=== PATIENT | female | born 1965 | race Caucasian/White ===

== ENCOUNTER → 2018-10-26 13:29 | Outpatient (CLI) | payer BC, SELFPAY ==
[2018-10-26 13:51] LABS: Basophils # 0.1 K/mm3 (0-0.2); Basophils % 0.7 % (0.1-2.0); Eosinophils # 0.2 K/mm3 (0.0-0.4); Eosinophils % 2.9 % (0.1-12.0); Hematocrit 39.3 % (37.0-47.0); Hemoglobin 12.8 g/dL (12.2-16.2); Lymphocytes # 1.6 K/mm3 (0.7-4.5); Mean Corpuscular HGB Conc 32.5 g/dL (31.8-35.4); Mean Corpuscular Hemoglobin 30.3 pg (27.0-31.2); Mean Corpuscular Volume 93.1 fl (81-99); Mean Platelet Volume 6.7 fl (7.4-10.4); Monocytes # 0.3 K/mm3 (0.1-1.0); Monocytes % 4.7 % (1.7-9.3); Neutrophils # 4.4 K/mm3 (1.8-7.8); Neutrophils % 67.7 % (37.0-80.0); Platelet Count 253 K/mm3 (142-424); Red Blood Count 4.22 M/mm3 (4.20-5.40); Red Cell Distribution Width 13.2 % (11.5-17.5); White Blood Count 6.5 K/mm3 (4.8-10.8)
[2018-10-26 19:16] LABS: Alanine Aminotransferase 33 U/L (12-78); Albumin/Globulin Ratio 1.2 (1.1-1.8); Alkaline Phosphatase 60 U/L (46-116); Anion Gap 16.1 mEq/L (5-15); Aspartate Amino Transferase 17 U/L (15-37); Bilirubin,Total 0.4 mg/dL (0.2-1.0); Blood Urea Nitrogen 15 mg/dL (7-18); Calcium 9.1 mg/dL (8.5-10.1); Carbon Dioxide 26 mmol/L (21.0-32.0); Chloride 104 mmol/L (98-107); Creatinine,Serum 0.83 mg/dL (0.55-1.02); Estimated Glomerular Filt Rate 72 ml/min (>60); GFR (African American) 87 ML/MIN (>60); Globulin 3.4 gm/dl (1.3-3.2); Glucose 114 mg/dL (74-106); Potassium 4.1 mmoL/L (3.5-5.1); Sodium 142 mmol/L (136-145); Total Protein,Serum 7.4 gm/dL (6.4-8.2)
== END ==
PROVIDERS: Visit Provider Otolaryngology
DX: Z01.810 Encounter for preprocedural cardiovascular examination (principal); Z01.812 Encounter for preprocedural laboratory examination
CPT/HCPCS: 36415; 80053; 85025; 93005

== ENCOUNTER → 2018-12-06 13:43 | Outpatient (CLI) | payer BC, SELFPAY ==
[2018-12-06 14:25] LABS: Calcium 7.7 mg/dL (8.5-10.1); Free T4 (Free Thyroxine) 1.39 ng/dl (0.76-1.46); Thyroid Stimulating Hormone 0.12 uIU/ml (0.358-3.740)
== END ==
PROVIDERS: Visit Provider Otolaryngology
DX: C73 Malignant neoplasm of thyroid gland (principal); C80.1 Malignant (primary) neoplasm, unspecified
CPT/HCPCS: 36415; 82310; 84439; 84443

== ENCOUNTER → 2019-01-14 09:58 | Outpatient (CLI) | payer BC, SELFPAY ==
[2019-01-14 10:41] LABS: Calcium 7.8 mg/dL (8.5-10.1); Free T4 (Free Thyroxine) 1.32 ng/dl (0.76-1.46); Thyroid Stimulating Hormone 0.14 uIU/ml (0.358-3.740)
== END ==
PROVIDERS: Visit Provider Otolaryngology
DX: C73 Malignant neoplasm of thyroid gland (principal); E03.9 Hypothyroidism, unspecified; E83.51 Hypocalcemia
CPT/HCPCS: 36415; 82310; 84439; 84443

== ENCOUNTER → 2019-02-14 14:59 | Outpatient (CLI) | payer BC, SELFPAY ==
[2019-02-14 15:15] LABS: Calcium 8.7 mg/dL (8.5-10.1)
== END ==
PROVIDERS: Visit Provider Otolaryngology
DX: E83.51 Hypocalcemia (principal)
CPT/HCPCS: 36415; 82310

== ENCOUNTER → 2019-07-14 15:50 | Outpatient (CLI) | payer OTHER, SELFPAY ==
--- NOTE | 2019-07-14 15:56 | MM_ITS ---
PROCEDURE: MM DIG SCREENING MAMM BI W/CAD CLINICAL INDICATION: screening There is no personal or family history of breast cancer. There has been previous bilateral breast reduction surgery. COMPARISON: DIGMAMMDX MAMMOGRAM DX-FINANCIAL INTERN N/C from 02/06/2010 DMSB DIGITAL MAMM-SCREEN BILATERAL from 09/17/2011 DMDXUWAL DIG MAMM-DX UNIL LT W/ADD VIEW from 03/12/2012 TECHNIQUE: Standard CC and MLO images were obtained. R2 CAD reviewed. FINDINGS: Scattered fibroglandular densities are seen throughout both breast on a background of primarily fatty type breast parenchyma. There are couple benign-appearing microcalcifications in each breast. There is no significant postsurgical scarring in either breast. There is no suspicious lesion and no suspicious microcalcifications. IMPRESSION: Fibrofatty parenchyma with no suspicious lesions seen BI-RAD Category: 2 Benign Finding(s) FOLLOW-UP: 1YR 1 Year Follow-up (A letter has been sent to the patient regarding results of the study.) Dictated by: Dr. Deon Bean MD 07/19/2019 12:[address] Deon Bean MD in [place] 07/19/2019 12:02
== END ==
PROVIDERS: PCP Physician Assistant; Visit Provider Nurse Practitioner Family
DX: Z12.31 Encounter for screening mammogram for malignant neoplasm of breast (principal)
CPT/HCPCS: 77067

== ENCOUNTER → 2019-12-01 10:35 | Outpatient (CLI) | payer BC, SELFPAY ==
[2019-12-01 11:08] LABS: Calcium 8.4 mg/dl (8.4-10.2)
[2019-12-01 11:30] LABS: Free T4 (Free Thyroxine) 1.67 ng/dl (0.78-2.19)
[2019-12-01 11:39] LABS: Thyroid Stimulating Hormone < 0.02 uIU/mL (0.465-4.68)
== END ==
PROVIDERS: Visit Provider Otolaryngology
DX: E03.9 Hypothyroidism, unspecified (principal)
CPT/HCPCS: 36415; 82310; 84439; 84443

== ENCOUNTER → 2020-12-03 12:41 | Outpatient (CLI) | payer OTHER, SELFPAY ==
[2020-12-03 13:48] LABS: Free T4 (Free Thyroxine) 1.41 ng/dl (0.78-2.19)
[2020-12-03 14:02] LABS: Thyroid Stimulating Hormone 0.23 uIU/mL (0.465-4.68)
== END ==
PROVIDERS: Visit Provider Otolaryngology
DX: E03.9 Hypothyroidism, unspecified (principal)
CPT/HCPCS: 36415; 84439; 84443

== ENCOUNTER → 2021-12-10 12:49 | Outpatient (CLI) | payer OTHER, SELFPAY ==
--- NOTE | 2021-12-10 12:54 | MM_ITS ---
PROCEDURE INFORMATION: Exam: MG Bilateral Screening 3D Mammography Exam date and time: 12/10/2021 12:58 PM Age: 56 years old Clinical indication: Screening examination. No family history of breast cancer. TECHNIQUE: Imaging protocol: Bilateral Screening tomosynthesis and 2D mammography including computer-aided detection (CAD) when performed. COMPARISON: 1. MG MM DIG SCREENING MAMM BI W/CAD 07/14/2019 4:06 PM 2. MG DMDXUWAL DIG MAMM-DX UNIL LT W/ADD VIEW 03/12/2012 3:06 PM 3. MG DMSB DIGITAL MAMM-SCREEN BILATERAL 09/17/2011 10:37 AM 4. MG DIGMAMMDX MAMMOGRAM DX-LEAD RELAY TESTER N/C 02/06/2010 11:02 AM FINDINGS: MAMMOGRAPHY: Breast composition: The breasts are almost entirely fatty. Mass: No suspicious mass. Architectural distortion: Mild diffuse architectural distortion with history of reduction mammoplasty. No suspicious architectural distortion. Calcifications: No suspicious calcifications. Asymmetric density: None. Skin thickening: None. Axillary adenopathy: None. IMPRESSION: No mammographic evidence of malignancy. Annual screening is recommended unless otherwise clinically indicated. ASSESSMENT: BI-RADS Category 2: Benign
== END ==
PROVIDERS: PCP Nurse Practitioner Family; Visit Provider Nurse Practitioner Family
DX: Z12.31 Encounter for screening mammogram for malignant neoplasm of breast (principal)
CPT/HCPCS: 77063; 77067

== ENCOUNTER → 2022-08-18 13:17 | Outpatient (CLI) | payer OTHER, SELFPAY ==
--- NOTE | 2022-08-18 13:21 | XR_ITS ---
FINAL REPORT CLINICAL HISTORY: foot pain FINDINGS: LEFT FOOT Three views of the left foot demonstrate no acute fracture or dislocation. The visualized joint spaces are normally aligned. The soft tissues are unremarkable. IMPRESSION: No acute bony abnormality. Reviewed, Interpreted and Dictated by Manjinder Bell III, MD Transcribed by Sharla Ware Authenticated and [facility] [place]
--- NOTE | 2022-08-18 13:21 | XR_ITS ---
FINAL REPORT CLINICAL HISTORY: foot pain FINDINGS: RIGHT FOOT 3 views of the right foot were obtained. There is no acute fracture or dislocation. Visualized joint spaces are normally aligned. Soft tissues are unremarkable. IMPRESSION: No acute bony abnormality. Reviewed, Interpreted and Dictated by Manjinder Bell III, MD Transcribed by Sharla Ware Authenticated and [facility]
== END ==
PROVIDERS: PCP Family Medicine; Visit Provider Podiatrist
DX: M79.671 Pain in right foot (principal); M79.672 Pain in left foot; M21.611 Bunion of right foot
CPT/HCPCS: 73630

== ENCOUNTER 2023-09-29 19:37 | Outpatient (CLI) | payer MEDICAID, SELFPAY ==
[2023-09-29 20:22] LABS: Basophils # 0.1 K/mm3 (0-0.2); Basophils % 1.1 % (0.1-2.0); Eosinophils # 0.1 K/mm3 (0.0-0.4); Eosinophils % 2.1 % (0.1-12.0); Hematocrit 41.2 % (37.0-47.0); Hemoglobin 13.2 g/dL (12.2-16.2); Lymphocytes # 1.1 K/mm3 (0.7-4.5); Lymphocytes % 22.2 % (10-50); Mean Corpuscular HGB Conc 32.1 g/dL (31.8-35.4); Mean Corpuscular Volume 99.6 fl (81-99); Mean Platelet Volume 9.2 fl (7.4-10.4); Monocytes # 0.3 K/mm3 (0.1-1.0); Monocytes % 5.4 % (1.7-9.3); Neutrophils # 3.5 K/mm3 (1.8-7.8); Neutrophils % 69.2 % (37.0-80.0); Platelet Count 273 K/mm3 (142-424); Red Blood Count 4.14 M/mm3 (4.20-5.40); Red Cell Distribution Width 13.8 % (11.5-17.5); White Blood Count 5.1 K/mm3 (4.8-10.8)
[2023-09-29 20:31] LABS: Alanine Aminotransferase 34 U/L (12-78); Albumin Level 4.7 g/dl (3.5-5.0); Albumin/Globulin Ratio 1.6 (1.1-1.8); Alkaline Phosphatase 72 U/L (38-126); Anion Gap 13.5 mEq/L (5-15); Aspartate Amino Transferase 35 U/L (14-36); Bilirubin,Total 0.7 mg/dl (0.2-1.3); Blood Urea Nitrogen 22 mg/dl (7-17); Calcium 8.8 mg/dl (8.4-10.2); Carbon Dioxide 30 mmol/L (22.0-30.0); Chloride 102 mmol/L (98-107); Chol/HDL Ratio 3.4 (1-3.5); Cholesterol 199 mg/dl (140-200); Estimated Glomerular Filt Rate 86 ml/min (>60); GFR (African American) 104 ML/MIN (>60); Globulin 2.9 g/dL (1.3-3.2); Glucose 84 mg/dl (74-100); HDL Cholesterol 59 mg/dl (40-60); Potassium 4.5 mmoL/L (3.5-5.1); Sodium 141 mmol/L (136-145); Total Protein,Serum 7.6 g/dl (6.3-8.2); Triglycerides 70 mg/dl (30-150); VLDL Cholesterol 14 mg/dL (0-40)
[2023-09-29 20:42] LABS: Direct LDL Cholesterol 87.76 mg/dL (100-129)
[2023-09-29 20:49] LABS: Free T4 (Free Thyroxine) 1.57 ng/dl (0.78-2.19); T4 (Thyroxine) 10.2 ug/dl (5.53-11.0); Triiodothryronine (T3) Uptake 35 % (23.5-40.5)
[2023-09-29 21:02] LABS: Thyroid Stimulating Hormone 0.52 uIU/mL (0.465-4.68)
== END 2023-09-29 23:59 ==
LOC: LAB.DROPOF 19:38
PROVIDERS: PCP Nurse Practitioner Family; Visit Provider Nurse Practitioner Family
DX: E03.9 Hypothyroidism, unspecified (principal)
CPT/HCPCS: 80053; 80061; 84436; 84439; 84443; 84479; 85025

== ENCOUNTER 2024-04-29 13:26 | Emergency (ER) | payer OTHER, SELFPAY ==
[2024-04-29 14:00] VITALS: BP 146/92; PULSE 82; RESP 20; TEMP 36.5; O2SAT 96; BMI 32.1
--- NOTE | 2024-04-29 14:12 | ED_ITS ---
Discharge Plan Disposition Patient Disposition: Home, Self-Care Condition: Good Prescriptions Prescriptions: New benzonatate 100 mg capsule 100 mg PO TID PRN (Reason: cough) Qty: 30 0RF methylprednisolone [Medrol (Artie)] 4 mg tablets,dose pack See Rx Instructions .Route .COMPLEX 6 Days Qty: 21 0RF Rx Instructions: taper pack; amoxicillin-pot clavulanate 875-125 mg Tablet 1 tab PO Q12H Qty: 20 0RF guaifenesin 1,200 mg tablet extended release 12hr 1,200 mg PO Q12H PRN (Reason: congestion) Qty: 20 0RF No Action aspirin [Adult Low Dose Aspirin] 81 mg tablet,delayed release (DR/EC) 81 mg PO DAILY loratadine 10 mg tablet See Rx Instructions .ROUTE .COMPLEX Qty: 90 3RF Dose Instruction: TAKE 1 TABLET EVERY DAY BY ORAL ROUTE. Rx Instructions: TAKE 1 TABLET EVERY DAY BY ORAL ROUTE. levothyroxine [Synthroid] 100 mcg tablet 100 mcg PO DAILY 30 Days Qty: 90 3RF meloxicam 7.5 mg tablet See Rx Instructions .ROUTE .COMPLEX Qty: 90 1RF Dose Instruction: TAKE 1 TABLET BY MOUTH DAILY FOR PAIN Rx Instructions: TAKE 1 TABLET BY MOUTH DAILY FOR PAIN Referrals Follow up/Referrals: Soni Araujo APRN [Primary Care Provider] - See instructions Activity Restrictions/Add. Instructions Additional Instructions/Restrictions: * Start antibiotic today. Be sure to complete entire prescription even if feeling better * Monitor temp. Tylenol every 4 hours as needed and / or ibuprofen every 6 hours as needed ( As long as your primary care physician has told you that it ok to take both. For fever/aches/pains ER if no less than 101 despite Tylenol or Motrin * Humidifier/vaporizer or hot steamy shower * Mucinex during the day for your cough and cough suppressant only at night. Be sure to drink lots of water. *Tessalon Perles will not cause drowsiness but use at bedtime to help stop cough so that you may get some rest. *Start steroid today. Helps with inflammation therefore, cough and wheezing. Follow directions on the package. Reviewed side effects. Patient reports taking them before. Follow up IMMEDIATELY for new or worsening of symptoms OR no noticeable improvement over the next 48-72 hours. 911 immediately for any life threatening symptoms such as chest pain or difficulty breathing Clinical Impressions Clinical Impression: Sinusitis Instructions Patient Instructions: DI for Sinusitis, Sinusitis, Cough Print Language Print Language: Estonian Discharge ED Provider: Geraldine Barry [facility] [place] HPI General Stated complaint: congestions, headache Mode of Arrival: Ambulatory Source of Information: Patient Limitations: No Limitations Time Seen by Provider: 04/29/24 14:12 Description of Symptoms (Recalled from Triage Doc. by RN): PATIENT C/O CONGESTION AND PRODUCTIVE COUGH SINCE THURSDAY. PATIENT REPORTS SHE DID HAVE COVID LAST WEEK HEENT Symptoms (Recalled from RN notes): Yes Resp Symptoms (Recalled from RN notes): Yes Skin Symptoms (Recalled from RN notes): No MS Symptoms (Recalled from RN notes): No Functional Status (Recalled from RN notes): WNL History of Present Illness Provider Complaint: Patient states that had COVID a week or so ago and was feeling better from that but on Thursday she started with sinus congestion and pressure, cough and drainage in the back of her throat that at times she will cough up some mucous States first she thought it was from the COVID but symptoms hasnt improved so she came in to get checked Related Data Home Medications ?Medication ?Instructions ?Recorded ?Confirmed aspirin 81 mg tablet,delayed 81 mg PO DAILY 12/10/21 04/29/24 release (Adult Low Dose Aspirin) Previous Rx's ?Medication ?Instructions ?Recorded loratadine 10 mg tablet See Rx Instructions .Route 02/05/23 .COMPLEX #90 tabs levothyroxine 100 mcg tablet 100 mcg PO DAILY 30 days #90 tabs 12/24/23 (Synthroid) meloxicam 7.5 mg tablet See Rx Instructions .Route 04/11/24 .COMPLEX #90 tabs amoxicillin 875 mg-potassium 1 tab PO Q12H #20 tabs 04/29/24 clavulanate 125 mg tablet benzonatate 100 mg capsule 100 mg PO TID PRN cough #30 caps 04/29/24 guaifenesin 1,200 mg tablet, 1,200 mg PO Q12H PRN congestion 04/29/24 extended release 12 hr #20 tabs methylprednisolone 4 mg tablets in See Rx Instructions .Route 04/29/24 a dose pack (Medrol (Artie)) .COMPLEX 6 days #21 tabs Allergies Allergy/AdvReac Type Severity Reaction Status Date / Time Sulfa (Sulfonamide Allergy Intermediate Verified 08/03/23 14:00 Antibiotics) Worker's Comp Is this a Worker's Comp case?: No [facility] Disclaimer: The information contained in this section may have been updated after the patient was seen, as this information can be updated by other users. 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 Peroneal tendonitis of right lower leg Substance abuse Synovitis of right ankle Tailor's bunionette, bilateral Surgical History H/O bilateral breast reduction surgery H/O tubal ligation History of endometrial ablation Family History Mother Coronary artery disease Diabetes Hypertension Kidney disease Brother Diabetes Social History Smoking Status: Current every day smoker tobacco type: e-cigarettes alcohol intake: never substance use type: former substance user current occupational status: employed Travel in the last 8 weeks: None household members: spouse housing: house ROS Obtained: Yes All systems reviewed & no additional complaints except as documented and Yes Systems reviewed as appropriate & no additional complaints except as documented Constitutional Constitutional: Reports system reviewed and no additional complaints, except as documented, Reports as per HPI and Reports headache(s) ENT Ears, Nose, Mouth, and Throat: Reports system reviewed and no additional complaints, except as documented, Reports as per HPI, Reports headache(s), Reports sinus pain and Reports sinus pressure Cardiovascular Cardiovascular: Reports system reviewed and no additional complaints, except as documented and Reports as per HPI Respiratory Respiratory: Reports system reviewed and no additional complaints, except as documented, Reports as per HPI, Reports chest congestion and Reports cough Neurologic Neurologic: Reports headache(s) Physical Exam General General appearance: alert and in no apparent distress ENT ENT exam: Present mucous membranes moist Expanded ENT Exam Nose exam: Present sinus tenderness Throat exam: Present other (PND noted) Respiratory Respiratory exam: Present normal lung sounds bilaterally; Absent respiratory distress or wheezes Cardiovascular Cardiovascular exam: Present regular rate, normal rhythm and normal heart sounds Neurological Exam Neurological exam: Present alert, oriented X3 and normal gait Medical Decision Making Medical Records Screening: Per USPSTF and CDC recommendations, given the prevalence of disease in our region, it is our hospital?s policy to screen for HIV and viral Hepatitis for all patients aged 18 and over and those with ongoing risk factors. Jeremiah Inquiry Pt receiving controlled substance: No Jeremiah was queried for this patient: No Vital Signs: 04/29/24 14:00 Temperature 97.7 F Temperature Source Oral Pulse Rate [Left Brachial] 82 Respiratory Rate 20 Blood Pressure [Left Arm] 146/92 H Blood Pressure Mean [Left Arm] 110 Blood Pressure Source [Left Arm] Automatic Cuff Blood Pressure Position [Left Arm] Sitting 02 Sat by Pulse Oximetry 96 Oxygen Delivery Method Room Air
[2024-04-29 14:31] VITALS: BP 146/92; PULSE 82; RESP 20; TEMP 36.5; O2SAT 96
== END 2024-04-29 14:33 | disposition home or self-care (01) ==
PROVIDERS: Emergency Provider Nurse Practitioner; PCP Nurse Practitioner Family
DX: J01.90 Acute sinusitis, unspecified (principal)
CPT/HCPCS: 99213; G0381